=== PATIENT | female | born 1955 | race Caucasian/White ===

== ENCOUNTER → 2024-11-28 | Outpatient (REF) | payer MEDICARE, OTHER ==
[~2024-11-28] MED LIST: FENTANYL CITRATE/PF 100MCG/2 ML INJ ONE; HYDRALAZINE HCL 20 MG/ML VIAL ONE; MIDAZOLAM HCL 2 MG/2 ML VIAL ONE; SODIUM CHLORIDE 0.9% 250ML 250 ML ONE
[2024-11-28 09:51] LABS: BASOPHILS % 0.5 % (0.0-1.0); EOSINOPHILS # (AUTO) 0.1 (0.0-0.4); EOSINOPHILS % 1.2 % (0.0-6.0); HEMATOCRIT 41.3 % (34.2-44.1); HEMOGLOBIN 13.7 g/dL (12.0-16.0); LYMPHOCYTES # (AUTO) 2.9 (1.0-3.2); LYMPHOCYTES % 38.8 % (18.0-39.1); MEAN CORPUSCULAR HEMOGLOBIN 31.3 pg (28-32); MEAN CORPUSCULAR HGB CONC 33.2 g/dL (31-35); MEAN CORPUSCULAR VOLUME 94.3 fL (81-99); MONOCYTES # (AUTO) 0.4 (0.2-0.8); MONOCYTES % 5.9 % (4.4-11.3); NEUTROPHILS # (AUTO) 3.9 (2.1-6.9); NEUTROPHILS % 53.3 % (38.7-80.0); PLATELET COUNT 297 x10e3/uL (140-360); RED BLOOD COUNT 4.38 x10e6/uL (3.6-5.1); WHITE BLOOD COUNT 7.34 x10e3/uL (4.8-10.8)
[2024-11-28 10:14] LABS: INR 0.93
[2024-11-28 10:15] LABS: PARTIAL THROMBOPLASTIN TIME 24.4 seconds (23.8-35.5)
== END ==
LOC: US 09:06
PROVIDERS: ATTEND Pain Medicine Interventional Pain Medicine
DX: R94.5 Abnormal results of liver function studies (principal); F17.210 Nicotine dependence, cigarettes, uncomplicated; I10 Essential (primary) hypertension
CPT/HCPCS: 36415; 47000; 76942; 85025; 85610; 85730; 88307; 88342; J0360; J2250; J3010; J7050; 88313